=== PATIENT | male | born 1990 | race African-American/Black ===

== ENCOUNTER 2016-07-23 21:06 | Emergency (ER) | payer BC, MEDICAID ==
[~2016-07-23] VITALS: Ht 188 cm; Wt 96.0 kg
[~2016-07-23 21:06] MED LIST: HYDR-3927; ZOLP10TA2
[2016-07-23] MEDS ORDERED: BACITRACIN ZINC OINT UDPKT TOP ONE (22:45)
[2016-07-23] MEDS ORDERED: TETANUS, DIPHTHERIA, PERTUSSIS VAC/PF 0.5ML (>7YR OLD) IM ONE (22:45)
[2016-07-23] MEDS ORDERED: LIDOCAINE HCL 1% 20ML VIAL (Pyxis) INJ MC ONE (22:45)
[2016-07-24] MEDS ORDERED: HYDROCODONE/ACETAMINOPHEN 5/325MG TABLET PO ONE (03:30)
[2016-07-24 03:59] VITALS: BP 128/78
== END 2016-07-24 04:31 | disposition home or self-care (01) ==
LOC: ER 21:07
DX: S01.91XA Laceration without foreign body of unspecified part of head, initial encounter (principal); Z79.899 Other long term (current) drug therapy; J45.909 Unspecified asthma, uncomplicated; F17.200 Nicotine dependence, unspecified, uncomplicated; W22.8XXA Striking against or struck by other objects, initial encounter; Y93.89 Activity, other specified; Y99.9 Unspecified external cause status; Y92.89 Other specified places as the place of occurrence of the external cause
CPT/HCPCS: 12013; 70450; 70486; 72125; 99284; J3490; X7700; Z7610